=== PATIENT | male | born 1980 | race Caucasian/White ===

== ENCOUNTER → 2018-08-27 | Outpatient (CLI) | payer MEDICAID ==
[2015-01-16 16:03] VITALS: BMI 23.0
[~2018-08-27] MED LIST: AMOX-559 PO; CIP500 PO; MULT-1379 PO; MULT-7 PO; NYST15OI14 TP; RISP-29 PO; [UNRECOGNIZED DRUG - OTHER]; [UNRECOGNIZED DRUG - OTHER]; vitamin d
== END ==
LOC: LAB 09:54
PROVIDERS: ATTEND Psychiatry & Neurology Psychiatry
DX: Z79.899 Other long term (current) drug therapy (principal)
CPT/HCPCS: 36415; 83036